=== PATIENT | male | born 1940 | race Asian ===

== ENCOUNTER → 2017-03-01 | Outpatient (CLI) | payer MEDICARE, OTHER ==
[~2017-03-01] MED LIST: ALLO300T2 PO; ASPI-1213 PO; COLCHICINE PO; CYCL10B PO; ESOM40CA PO; FERR1TAB85 PO; GLYB5 PO; HYDR-3705 PO; MELO-106 PO; MELO7.5T12; METF500T4 PO; MULT1TAB70 PO; NIAC50TA4 PO; SIMV20TA6 PO; SITA25 PO; STOOL SOFTENER PO
[2017-03-01 12:41] LABS: CREATININE 1.53 mg/dL (0.60-1.30); PHOSPHORUS 3.2 mg/dL (2.5-4.9); POTASSIUM 4.4 mmol/L (3.5-5.1)
[2017-03-01 12:54] LABS: CREATININE,URINE 75.4 mg/dL (30.0-125.0)
[2017-03-01 12:57] LABS: CREATININE,SERUM FOR CRCL 1.53 mg/dL (0.60-1.30)
== END | disposition home or self-care (01) ==
LOC: LABPV 10:05
PROVIDERS: ATTEND Internal Medicine Nephrology
DX: E11.22 Type 2 diabetes mellitus with diabetic chronic kidney disease (principal); N18.3 Chronic kidney disease, stage 3 (moderate); E78.5 Hyperlipidemia, unspecified
CPT/HCPCS: 81050; 82575; 83970; 84100; 84156; 84300